=== PATIENT | female | born 1965 | race Caucasian/White ===

== ENCOUNTER 2022-09-14 06:33 | Observation (INO) ==
--- NOTE | 2022-08-18 09:43 | PAT Medication Instructions ---
Medication Instructions Date of Service August 18, 2022 Home Medications albuterol sulfate 90 mcg/actuation aerosol inhaler (ProAir HFA) 1 inh inhalation QID PRN sob cholecalciferol (vitamin D3) 50 mcg (2,000 unit) capsule (Vitamin D3) 50 mcg PO QAM famotidine 20 mg tablet 20 mg PO BID lisinopril 20 mg tablet 20 mg PO QAM metoprolol tartrate 50 mg tablet 50 mg PO BID rivaroxaban 20 mg tablet (Xarelto) 20 mg PO PM ASK your prescriber and surgeon rivaroxaban 20 mg tablet (Xarelto) 20 mg PO PM (in order to get spinal anesthesia DOS- must be off Xarelto/rivaroxaban for at least 72 hours) DO NOT take the morning of surgery cholecalciferol (vitamin D3) 50 mcg (2,000 unit) capsule (Vitamin D3) 50 mcg PO QAM lisinopril 20 mg tablet 20 mg PO QAM Take morning of surgery With a small sip of water, OTHERWISE NOTHING TO EAT OR DRINK AFTER MIDNIGHT: albuterol sulfate 90 mcg/actuation aerosol inhaler (ProAir HFA) 1 inh inhalation QID PRN sob (use if needed; please bring with you to hospital day of surgery if possible) famotidine 20 mg tablet 20 mg PO BID metoprolol tartrate 50 mg tablet 50 mg PO BID Take evening before surgery albuterol sulfate 90 mcg/actuation aerosol inhaler (ProAir HFA) 1 inh inhalation QID PRN sob (if needed) famotidine 20 mg tablet 20 mg PO BID metoprolol tartrate 50 mg tablet 50 mg PO BID Other Notes If you have any questions please call us at [phone] or [phone] or [phone] or [phone]
--- NOTE | 2022-08-19 14:22 | Anesthesiology Consultation ---
Date of Service August 19, 2022 Assessment & Plan (1) Encounter for pre-operative examination: - COVID screening: Per assessment on 08/19: No known COVID-19 positive contacts or current COVID-19 related symptoms. Travel screen negative. Patient vaccinated. At surgeon discretion if preop Covid testing being done. - Outpatient joint assessment: Pt currently scheduled for inpatient pathway. If surgeon requests review for outpatient joint pathway, patient not recommended candidate for outpatient joint program from anesthesia standpoint. Chart Review Chart Review: Acceptable Risk for Surgery and Patient seen in Pre Admission Testing Teaching & Discussion Pre-Anesthesia Teaching/Discussion Notes: Instructed NPO after midnight before surgery,except medications with 15 cc of water. Medication instructions provided according to the PAT guidelines. History Surgery Operation Date: 09/14/22 07:00 Proposed Procedures p Left Total Knee Arthroplasty - Gaudencio Sanchez DO Height/Weight Height: 5 ft 1 in Weight: 97.5 kg Allergies Allergy/AdvReac Type Severity Reaction Status Date / Time Sulfa (Sulfonamide Allergy Rash Verified 08/19/22 12:57 Antibiotics) Medications Home Medications Medication Instructions Recorded Confirmed Last Taken albuterol sulfate 90 mcg/actuation 1 inh inhalation QID PRN sob 08/17/22 08/19/22 Unknown aerosol inhaler (ProAir HFA) cholecalciferol (vitamin D3) 50 50 mcg PO QAM 08/17/22 08/19/22 Unknown mcg (2,000 unit) capsule (Vitamin D3) famotidine 20 mg tablet 20 mg PO BID 08/17/22 08/19/22 Unknown lisinopril 20 mg tablet 20 mg PO QAM 08/17/22 08/19/22 Unknown metoprolol tartrate 50 mg tablet 50 mg PO BID 08/17/22 08/19/22 Unknown rivaroxaban 20 mg tablet (Xarelto) 20 mg PO PM 08/17/22 08/19/22 Unknown Past Medical History Medical History Atrial fibrillation on Xarelto. Folliwing with Dr. Obrien in [place]. GERD (gastroesophageal reflux disease) History of postoperative nausea HTN (hypertension) Osteoarthritis Exercise / Class Metabolic Activity II 4-5 Yardwork/Stairs/Walk up hill Past Family History Family History Other No family history of adverse response to anesthesia Past Surgical History Surgical History History of appendectomy History of arthroscopy of left knee History of arthroscopy of right knee History of cardiac radiofrequency ablation x 2 History of cataract surgery History of colonoscopy History of dental surgery Past Anesthesia History No Hx of Anesthesia Complications (except single remote episode post-op nausea) and No Family Hx of Anesthesia Complications History of PONV No Hx of PONV (except single remote episode post-op nausea) and No Hx of Motion Sickness Social History Smoking Status: Never smoker Do You Dip or Chew Tobacco: No Smoking End Date: Quit 1999 Hx Alcohol Use: Yes alcohol intake frequency: holidays/special occasions only Hx Substance Use: No substance use type: does not use Physical Exam Vital Signs VITALS BP 155/87 P 69 TEMP 98.3 SP02 97%RA RESP 16 PHYSICAL Full cervical extension range of motion. Full TMJ range of motion. TMD 3 finger breaths Mallampati Score 2 Dentition: upper full dentures, partial lower Lungs: clear throughout to auscultation Cardiac: regular rate and rhythm, no murmurs noted Spine: normal Carotid arteries: negative bruit Extremities: no edema Lab Results Anesthesia Preop Results Results Anesthesia Widget: WBC 5.89 K/ul (4.8-10.8) 08/19/22 Hgb 13.5 g/dl (12.0-16.0) 08/19/22 Hct 40.2 % (37.0-47.0) 08/19/22 Plt 178 K/uL (130-400) 08/19/22 Na 140 mmol/L (136-145) 08/19/22 K 4.7 mmol/L (3.5-5.1) 08/19/22 Cl 105 mmol/L (98-107) 08/19/22 CO2 30 mmol/L (21-32) 08/19/22 BUN 20 mg/dl (6-23) 08/19/22 Creat 0.70 mg/dl (0.6-1.2) 08/19/22 Glucose Level 86 mg/dl (70-99(Fasting)) 08/19/22 PT 11.3 Seconds (9.0-12.0) 08/19/22 PTT 38.4 Seconds (21.0-31.0) H 08/19/22 INR 1.1 (0.9-1.1) 08/19/22 Blood Type O Positive 08/19/22 Antibody Screen NEGATIVE 08/19/22 Testing Electrocardiogram Date: 06/15/22 "Normal sinus rhythm at 60bpm, low voltage, nonspecific ST-T wave abnormalities" per cardiology office visit note Chest X-Ray Date: 08/19/22 Findings: + NAD Echocardiogram Date: 11/04/20 EF 55 to 60%. No regional motion abnormality. Mild concentric LVH. Mild TR. COVID-19 Risk Screen Screening Information COVID-19 Screen Date: 08/19/22 Exposure 21 Days Family/Household +COVID Last 21 Days: No Exposure 10 Days Any COVID Exposure Last 10 Days: No Symptoms Last 10 Days Experienced COVID Sx Last 10 Days: No + COVID 0-90 Days COVID + in Last 0-90 Days: No
[~2022-09-14 06:33] MED LIST: ACETAMINOPHEN 500 MG TAB PO SCH; BUPIVACAINE 0.5 % 5 MG/1 ML PF 10ML VIAL ONE; FAMOTIDINE 20 MG TAB PO SCH; GABAPENTIN 900 MG DOSE PO SCH; LR 500ML BOLUS, THEN 15ML/HR IV SCH; LR 60ML/HR IV SCH; ORTHO JOINT MIX INFIL SCH; ROPIVACAINE 0.5% 5 MG/ML 30 ML VIAL ONE; TRANEXAMIC ACID 1,000 MG **IV Intra-op IV SCH; TRANEXAMIC ACID 1,000 MG **IV Pre-op IV SCH; ceFAZolin 2000MG 2,000 MG/15 ML SYR IV SCH; dexAMETHasone 4 MG TAB PO SCH
[2022-09-14] MEDS ORDERED: fentaNYL citrate PF 100 MCG/2 ML VIAL IV PRN (08:16)
[2022-09-14] MEDS ORDERED: ePHEDrine sulfate 50 MG/ML AMP IV PRN (08:16)
[2022-09-14] MEDS ORDERED: ATROPINE SULFATE 0.1 MG/ML 10ML SYR IV PRN (08:16)
[2022-09-14] MEDS ORDERED: ONDANSETRON INJ 2 MG/ML 2 ML VIAL IV PRN ×2 (08:16→12:14)
--- NOTE | 2022-09-14 08:24 | History & Physical Bridge Note ---
Date of Service September 14, 2022 History & Physical Bridge Note I have examined the patient, reviewed the History & Physical and in the interval since the performance of the History & Physical I have noted the following changes of clinical significance: no changes noted
[2022-09-14] MEDS ORDERED: ORTHO JOINT ANESTHETIC ONE (08:48)
[2022-09-14] MEDS ORDERED: MIDAZOLAM HCL 1 MG/ML 2ML VIAL ONE (08:48)
[2022-09-14] MEDS ORDERED: PROPOFOL IV EMULSION 10 MG/ML 20 ML VIAL IV ONE (08:48)
[2022-09-14] MEDS ORDERED: fentaNYL citrate PF 100 MCG/2 ML VIAL ONE (09:21)
[2022-09-14] MEDS ORDERED: ONDANSETRON INJ 2 MG/ML 2 ML VIAL ONE (09:40)
[2022-09-14] MEDS ORDERED: ePHEDrine sulfate 50 MG/ML AMP ONE (10:44)
--- NOTE | 2022-09-14 10:59 | Operative Report ---
PG Post Operative Report Pre & Post Diagnosis Operation Date: 09/14/22 09:20 Pre-Op Diagnosis: Degenerative Joint Disease Left Knee Post-Op Diagnosis: Degenerative Joint Disease Left Knee I identified the patient and participated in the time-out.: Yes Procedure Operation Date: 09/14/22 09:20 Actual Procedures p Left Total Knee Arthroplasty(Left) - Gaudencio Sanchez DO Surgeon Gaudencio Sanchez DO Photo Manager Gaudencio Gan PA-C Estimated Blood Loss 50 Findings Consistent with Post-Op Diagnosis Specimens Left femoral tibial bone Description of Procedure Implants used: I used a Rach Persona total knee arthroplasty system with a size 7 standard femur, E tibia, 28 oval patella, and a size 16 medial congruent polyethylene bearing. All components were cemented in place with Biomet cement. Laverne arrived [facility] for the above procedure. She was seen in the preoperative holding area and the operative extremity was identified and signed. She was given a preoperative antibiotic, TXA, a spinal anesthetic and an adductor nerve block. She was taken back to the operating room and laid on the table in supine position. She was given basic sedation. The operative knee was then prepped and draped in sterile fashion. A timeout was done, and the patient and the operative extremity was properly identified. A midline incision was made directly over the patella. Dissection was taken down to the extensor mechanism. A midvastus arthrotomy was used. The medial retinaculum was released and the fat pad was mostly excised. The knee was flexed and the ACL, PCL, and meniscus were removed. A drill was sent down the center of the femoral canal followed by an intramedullary kevin. Off that kevin a distal femoral cutting block was placed. 9 mm was resected off the distal femur at 5 of valgus. A posterior referencing AP sizing guide was then placed on the distal femur. The femur measured to be a size 7. 2 drill holes were placed in 3 of external rotation. A 4-in-1 cutting block was then impacted into place. Anterior, posterior, and chamfer cuts were then made. The proximal tibia was then exposed. An external tibial alignment guide was placed. A tibial cut guide was then anchored in place and the proximal tibia was then resected. The posterior aspect of the knee was then opened up and any additional meniscus fragments and osteophytes were removed. The tibia measured to be a size E. The tibial plate was then placed in the appropriate rotation and the tibia was drilled and punched. Trial components were then placed. I used a size 16 medial congruent polyethylene insert. The knee was brought through a full range of motion and felt to be stable. The peg holes for the femoral component were then drilled. The patella was then everted and 9 mm was resected off the posterior aspect of the patella. The patella measured to be a size 28 oval. 3 peg holes were then drilled. A trial patella was placed. The knee was once again brought through a full range of motion and felt to be stable. Trial components were then removed. The surrounding soft tissues were injected with 100 cc of an orthopedic pain control cocktail. All components were then cemented into place with Biomet cement. The final polyethylene insert was then snapped into place. Once cement was dry the tourniquet was deflated. Hemostasis was obtained. A dilute betadyne lavage was then done for 3 minutes. The joint was then irrigated with normal saline solution. The midvastus arthrotomy was then closed with #1 Vicryl suture. The skin was closed with 2-0 Vicryl, 3-0V lock suture, and mouna. A soft compressive dressing was placed. She was then transferred to a hospital bed and taken to the postanesthesia care unit in stable condition. She tolerated the procedure well. Gaudencio Gan PA-C, was present for the entire procedure. He was critical for patient positioning, prepping, draping, retraction exposure, wound closure and application of sterile dressing. I attest to the content of the Intraoperative Record and any orders documented therein. Any exceptions are noted below.
--- NOTE | 2022-09-14 11:48 | XRay Report ---
TWO VIEWS LEFT KNEE CLINICAL HISTORY: Postoperative examination. FINDINGS: AP and crosstable lateral portable views of the left knee are obtained. A left knee arthrop lasty is in near anatomic alignment. There has been undersurface remodeling of the patella. No acute fracture is seen. There are expected postoperative changes around the knee including skin clips, soft tissue edema, and subcutaneous gas. IMPRESSION: Expected postoperative changes status post left knee arthroplasty. No acute fracture is s een. ACT 112: Negative or not required by law. Electronically signed by: Kevon Rueda M.D. 09/14/2022 11:46 AM
--- NOTE | 2022-09-14 12:05 | Anesthesiology Progress Note ---
Date of Service September 14, 2022 Anesthesia Post Procedure Vital Signs Vital Signs: Temp Pulse Pulse Resp BP Pulse Ox O2 Del Method 09/14/22 11:50 97.3 F L 69 15 109/69 99 Nasal Cannula 09/14/22 11:40 98.1 F 70 13 132/74 98 Nasal Cannula 09/14/22 11:30 98.1 F 80 16 124/71 96 Oxymask 09/14/22 11:20 98.1 F 79 12 138/81 97 Oxymask 09/14/22 07:16 97.9 F 67 18 162/93 H 98 Room Air O2 Flow Rate 09/14/22 11:50 2 09/14/22 11:40 3 09/14/22 11:30 6 09/14/22 11:20 6 09/14/22 07:16 Pain Intensity Left Knee: Pain Intensity: 4 Transfer of Care Handoff Completed per policy Notes Mental Status: alert / awake / arousable and participated in evaluation Patient Amnestic to Procedure: Yes Nausea / Vomiting: adequately controlled Pain: adequately controlled Airway Patency, RR, SpO2: stable & adequate BP & HR: stable & adequate Hydration State: stable & adequate Neuraxial Anesthesia: was administered and sensory block is resolving Anesthetic Complications: no major complications apparent and Pt Satisfied with anesthetic care
[2022-09-14] MEDS ORDERED: ALBUTEROL HFA 8 GM INHALER INH PRN (12:14)
[2022-09-14] MEDS ORDERED: MAGNESIUM HYDROXIDE SUSP 30 ML UDC PO PRN (12:14)
[2022-09-14] MEDS ORDERED: HYDROmorphone INJ 0.5 MG/0.5 ML SYR IV PRN (12:14)
[2022-09-14] MEDS ORDERED: NALOXONE HCL 0.4 MG/1 ML VIAL/CARP IV PRN (12:14)
[2022-09-14] MEDS ORDERED: bisacodyL 10 MG SUPP PR PRN (12:14)
[2022-09-14] MEDS ORDERED: METOCLOPRAMIDE HCL INJ 5 MG/ML 2 ML VIAL IV PRN (12:14)
[2022-09-14] MEDS: KETOROLAC 30 MG/ML VIAL IV SCH ×2 (12:47→18:02)
[2022-09-14] MEDS: SODIUM CHLORIDE 0.9% 1000ML 1,000 ML IV SCH ×2 (12:47→23:02)
[2022-09-14] MEDS: ACETAMINOPHEN 500 MG TAB PO SCH ×2 (14:19→22:59)
[2022-09-14] MEDS: ceFAZolin 2000MG 2,000 MG/15 ML SYR IV SCH (18:02)
[2022-09-14] MEDS: FAMOTIDINE 20 MG TAB PO SCH (20:30)
[2022-09-14] MEDS: DOCUSATE SODIUM 100 MG CAP PO SCH (20:33)
[2022-09-14] MEDS: METOPROLOL TARTRATE 50 MG TAB PO SCH (20:33)
[2022-09-14] MEDS: oxyCODONE HCL IR 5 MG TAB (IMMEDIATE RELEASE) PO PRN (20:42)
[2022-09-14] MEDS ORDERED: SENNA 8.6 MG TAB PO SCH (21:00)
[2022-09-15] MEDS: KETOROLAC 30 MG/ML VIAL IV SCH ×3 (01:12→12:26)
[2022-09-15] MEDS: ceFAZolin 2000MG 2,000 MG/15 ML SYR IV SCH (01:12)
[2022-09-15] MEDS: ACETAMINOPHEN 500 MG TAB PO SCH (06:06)
--- NOTE | 2022-09-15 06:48 | Orthopedic Progress Note ---
Date of Service September 15, 2022 Assessment & Plan (1) Status post left knee replacement: Overall she is doing very well. She is not having much pain in the left knee. She will be seen by physical therapy today for ambulation and range of motion exercises. She will be on Xarelto 10 mg daily for 2 weeks for DVT prophylaxis. She can then resume her Xarelto 20 mg dosing. The nursing staff can change her dressing after physical therapy today. She can be discharged home later today. She will follow-up orthopedics in 2 weeks. Tia Galloway was seen and examined at bedside this morning. Overall she is doing fairly well. She is not having too much pain in the left knee. She has been up and ambulating to the bathroom. She has no complaints.. Review of Systems All systems reviewed & are unremarkable except as noted in HPI & below. Physical Exam On physical examination of the left knee, the dressing is clean and dry. Her leg is out in full extension. She has active dorsiflexion plantarflexion of her left ankle.. Results & Data Results & Data Laboratory Results . Diagnostic Findings Postoperative x-rays of the left knee show the prosthesis to be in anatomic alignment without any evidence of fracture, screws, or loosening. PG Care Time/CCT Total # of Minutes Spent Total Time Spent with Patient: Total time spent is greater than 50% in coordination of care (as documented) at patient's floor/unit and/or counseling patient: Coding Level of Care Code 64367 Post Operative Follow-Up Diagnoses Status post left knee replacement Z96.652
--- NOTE | 2022-09-15 06:49 | Discharge Summary ---
Date of Service September 15, 2022 Principal Diagnosis Same as "Discharge Diagnosis" noted below under Discharge Instructions. Discharge Exam On physical examination of the left knee, the dressing is clean and dry. Her leg is out in full extension. She has active dorsiflexion plantarflexion of her left ankle.. Discharge Data Procedures Performed Operation Date: 09/14/22 09:20 Actual Procedures p Left Total Knee Arthroplasty(Left) - Gaudencio Sanchez DO Ordered Studies 09/14/22 05:00 US - OR guided needle placemen Routine Hospital Course (1) Status post left knee replacement: On September 14, 2022 Laverne arrived at [facility] and underwent a left knee replacement without complication. She had a spinal anesthetic. Postoperatively she was started on Xarelto for DVT prophylaxis and transferred to the general orthopedic floors. Her hospital course was uneventful. On postop day #1, her vital signs were stable and her pain was well controlled. She was able to participate well with physical therapy doing ambulation and range of motion exercises. She was then discharged home. She will follow-up with orthopedics in 2 weeks. PG Care Time/CCT Total # of Minutes Spent Total Time Spent with Patient: Total time spent is greater than 50% in coordination of care (as documented) at patient's floor/unit and/or counseling patient: Discharge Plan Discharge Items Patient Disposition: Home - Home Health Services Reason For Visit: DJD Knee Left Discharge Diagnosis: Left knee replacement Activity: Per Instructions section Non-emergency contact: Surgeon Call non-emergency contact if: your wound has increased redness and your wound has increased drainage Follow-up/Referrals: Ting Dave DO [Primary Care Provider] - Diet: Regular Addtl Attending Provider Instructions: Activity and Therapy Recommendations: * If you are using [facility] then therapy will be provided at your home until they feel you have accomplished all of your goals. * If you are using [facility] then Physical Therapy will be provided until they feel you are ready to start Outpatient Physical Therapy. * If you are not using home therapy then Outpatient Physical Therapy should start about 3-5 days from your day of surgery. Therapy will last about 6-10 weeks * It is important not to put a pillow under your knee when you are relaxing or sleeping. It is just as important to make sure you are getting your knee perfectly straight as it is to regain your knee bend. * You were shown a series of exercises in the hospital. Do these exercises three times each day including the exercises you were shown in physical therapy. * Get up and walk several times each day. For the first four weeks, try not to stand or walk for more than one hour at a time. If you do stand or walk for more than one hour, you will not hurt anything, but your leg will likely swell. * As you feel comfortable, you may change from the walker or crutches to a cane and then to independent walking. Medications: * Narcotic You will likely be sent home from the hospital with a prescription for the narcotic pain medication that worked best throughout your stay. * Takes Xarelto 10 mg daily for 2 weeks. Then may resume your 20 mg daily doses. * Other medications may be prescribed for specific circumstances. If you have any questions, please call the office at . * Resume previous home medications unless otherwise instructed TEDs/Elastic Stockings: The white elastic stockings help limit swelling and prevent blood clots from forming in your legs.~ The more you wear them, the more they work. Wear them for six weeks. Dressing Care: The dressing can be changed after physical therapy on postop day #1. Daily dry dressing changes for a few days, especially if the incision is still draining some. If the incision is not draining then you may leave the mouna open to air. If there is a little bit of drainage or if the mouna are getting stuck on your clothing then cover the incision with a dry dressing. The mouna will be removed at your 2 week follow-up appointment. Showering: You may shower 5 days from the day of surgery as long as the incision is no longer draining. You may shower with the mouna exposed. Let soapy water run over the mouna and pat them dry. Do not scrub or soak the incision. Things To Watch For: * Drainage from the incision site that occurs more than one week after your surgery. * Increased redness at the incision site. * Fever above 102 degrees Fahrenheit. * Unusual chest pain or shortness of breath. * Call [facility] at with any of the above problems Follow-Up Visit: Follow-up with Dr. Sanchez's PA (Gaudencio Gan) 2-3 weeks after your day of surgery. He will remove your mouna and answer any questions. If you have any additional questions or concerns, Dr Sanchez is usually in the office at the same time and will be available An appointment was probably scheduled when you signed-up for surgery in the office. If you have any questions call Office Instructions: More detailed instructions as well as Frequently Asked Questions were provided in a folder by our office when you signed-up for surgery. Please review these instructions when you get home. If you have any further questions or concerns, please feel free to call the office at [phone] Pending Studies at Discharge: No Stand-Alone Forms: My [facility] [employer], Smoking Cessation Medications and DC Order Prescriptions: New oxycodone-acetaminophen 5-325 mg tablet 1 tab PO Q6H PRN (Reason: pain) Qty: 30 0RF Xarelto 10 mg tablet 10 mg PO DAILY Qty: 14 0RF Rx Instructions: for 35 days Continued lisinopril 20 mg Tablet 20 mg PO QAM famotidine 20 mg Tablet 20 mg PO BID metoprolol tartrate 50 mg Tablet 50 mg PO BID albuterol sulfate [ProAir HFA] 90 mcg/actuation Hfa Aerosol Inhaler 1 inh INHALATION QID PRN (Reason: sob) cholecalciferol (vitamin D3) [Vitamin D3] 50 mcg (2,000 unit) Capsule 50 mcg PO QAM Discontinued Xarelto 20 mg Tablet 20 mg PO PM Rx Instructions: must administer with evening meal Admission Data Admit Date/Time: 09/14/22 11:24 Attending Provider: Gaudencio Sanchez Admit Provider: Gaudencio Sanchez Primary Care Provider: Ting Dave
[2022-09-15] MEDS: oxyCODONE HCL IR 5 MG TAB (IMMEDIATE RELEASE) PO PRN (07:49)
[2022-09-15] MEDS: FAMOTIDINE 20 MG TAB PO SCH (07:51)
[2022-09-15] MEDS: DOCUSATE SODIUM 100 MG CAP PO SCH (07:51)
[2022-09-15] MEDS: METOPROLOL TARTRATE 50 MG TAB PO SCH (07:51)
[2022-09-15] MEDS ORDERED: dexAMETHasone 4 MG TAB PO SCH (08:00)
[2022-09-15] MEDS ORDERED: lisinopril 20 MG TAB PO SCH (09:00)
[2022-09-15] MEDS ORDERED: MULTIVITAMIN TAB PO SCH (09:00)
[2022-09-15] MEDS ORDERED: RIVAROXABAN 10 MG TABLET PO SCH (21:00)
[2022-09-15] MEDS ORDERED: RIVAROXABAN 20 MG TAB PO SCH (21:00)
== END 2022-09-15 14:59 | disposition home health service (06) ==
LOC: ASU 06:33 → 3E 06:33
DX: Z88.2 Allergy status to sulfonamides; Z79.899 Other long term (current) drug therapy; Z79.01 Long term (current) use of anticoagulants; M17.12 Unilateral primary osteoarthritis, left knee

== ENCOUNTER 2023-09-10 06:29 | Observation (INO) ==
--- NOTE | 2023-08-12 09:40 | PAT Medication Instructions ---
Medication Instructions Date of Service August 12, 2023 Home Medications albuterol sulfate 90 mcg/actuation aerosol inhaler (ProAir HFA) 1 inh inhalation QID PRN famotidine 20 mg tablet 20 mg PO BID lisinopril 20 mg tablet 20 mg PO QAM metoprolol tartrate 50 mg tablet 50 mg PO BID rivaroxaban 10 mg tablet (Xarelto) 10 mg PO QPM ASK your prescriber and surgeon rivaroxaban 10 mg tablet (Xarelto) 10 mg PO QPM(in order for spinal or epidural anesthesia, Xarelto needs to be stopped 72 hours/3 days before surgery. Please check if okay with doctor that prescribes this to you) DO NOT take the morning of surgery lisinopril 20 mg tablet 20 mg PO QAM Take morning of surgery With a small sip of water, OTHERWISE NOTHING TO EAT OR DRINK AFTER MIDNIGHT: albuterol sulfate 90 mcg/actuation aerosol inhaler (ProAir HFA) 1 inh inhalation QID PRN(use if needed; please bring with you to hospital day of surgery if possible) famotidine 20 mg tablet 20 mg PO BID metoprolol tartrate 50 mg tablet 50 mg PO BID Take evening before surgery albuterol sulfate 90 mcg/actuation aerosol inhaler (ProAir HFA) 1 inh inhalation QID PRN(if needed) famotidine 20 mg tablet 20 mg PO BID metoprolol tartrate 50 mg tablet 50 mg PO BID Other Notes If you have any questions please call us at [phone] or [phone] or [phone] or [phone]
--- NOTE | 2023-08-17 13:31 | Anesthesiology Consultation ---
Date of Service August 17, 2023 Assessment & Plan (1) Encounter for pre-operative examination: - difficult IV stick. OR notified. - cardiology office visit 07/12/23: "...paroxysmal atrial fibrillation and flutter s/p cryoablation via PVI and RF ablation via CTI on 09/23/2016, status post redo RF Ablation on 04/28/2019, hypertension...continues to endorse no new or worsening cardiac symptoms...has maintained sinus rhythm with no subjective or objective relapse. Event monitor in February 2022 showed short paroxysms of atrial tachycardia. No atrial fibrillation or flutter noted...on rivaroxaban 20 mg daily for thromboembolic prevention...scheduled for right knee replacement in September 2023...will see her back in 6 months..." - Outpatient joint assessment: Patient is currently scheduled for inpatient pathway. If re-evaluated and patient/surgeon requests outpatient pathway, patient is not recommended candidate for outpatient joint program from anesthesia standpoint. Chart Review Chart Review: Acceptable Risk for Surgery and Patient seen in Pre Admission Testing Teaching & Discussion Pre-Anesthesia Teaching/Discussion Notes: Instructed NPO after midnight before surgery, except medications with 15 cc of water. Medication instructions provided according to the PAT guidelines. History Surgery Operation Date: 09/10/23 09:00 Proposed Procedures p Right Total Knee Arthroplasty - Gaudencio Sanchez DO Height/Weight Height: 5 ft 1 in Weight: 116.9 kg Allergies Allergy/AdvReac Type Severity Reaction Status Date / Time Sulfa (Sulfonamide Allergy Mild Rash Verified 08/11/23 11:37 Antibiotics) Medications Home Medications Medication Instructions Recorded Confirmed Last Taken albuterol sulfate 90 mcg/actuation 1 inh inhalation QID PRN sob 08/17/22 08/11/23 09/13/22 16:00 aerosol inhaler (ProAir HFA) famotidine 20 mg tablet 20 mg PO BID 08/17/22 08/11/23 09/14/22 05:30 lisinopril 20 mg tablet 20 mg PO QAM 08/17/22 08/11/23 09/13/22 06:30 metoprolol tartrate 50 mg tablet 50 mg PO BID 08/17/22 08/11/23 09/14/22 05:30 rivaroxaban 10 mg tablet (Xarelto) 10 mg PO QPM 08/11/23 08/11/23 Unknown Past Medical History Medical History Difficult intravenous access History of postoperative nausea GERD (gastroesophageal reflux disease) HTN (hypertension) Atrial fibrillation Patient denies h/o stroke, seizures, heart attack, heart failure, DM, blood clots/DVTs or blood transfusions. Exercise / Class Metabolic Activity III < 4 Walking/Shop/Light housework (denies chest discomfort or shortness of breath with usual activities, less than 8 steps at home) Past Family History Family History Other No family history of adverse response to anesthesia Past Surgical History Surgical History History of left knee replacement History of arthroscopy of right knee History of arthroscopy of left knee History of appendectomy History of dental surgery History of cataract surgery History of colonoscopy History of cardiac radiofrequency ablation Past Anesthesia History No Hx of Anesthesia Complications and No Family Hx of Anesthesia Complications History of PONV No Hx of Motion Sickness and History of PONV (denies needing scop patch) Social History Smoking Status: Former smoker Do You Dip or Chew Tobacco: No Smoking End Date: quit 1999 Hx Alcohol Use: Yes alcohol intake frequency: holidays/special occasions only Hx Substance Use: No substance use type: does not use Review of Systems Snoring, denies witnessed apneas. Patient reports sleep study was negative. Patient denies chest pain, shortness of breath, dyspnea on exertion, fever, chills, cough, wheezing, or palpitations. Physical Exam Vital Signs Vitals BP 140/84 P 74 TEMP 98.3 SP02 97% on RA RESP 18 Physical Patient resting comfortably in chair in no acute distress, alert and oriented, responding appropriately throughout visit Full cervical extension range of motion without pain TMD < 3 finger breadths Mallampati Score 2 Dentition: full upper plate and lower partial, denies chipped or loose teeth, caps/crowns, implants or bridges Lungs: normal respiratory effort. Good air movement, clear throughout to auscultation, no adventitious breath sounds Cardiac: regular rate and rhythm, no murmurs noted Carotid arteries: negative bruit bilat Lab Results Anesthesia Preop Results Results Anesthesia Widget: WBC 6.08 K/ul (4.8-10.8) 08/17/23 Hgb 13.7 g/dl (12.0-16.0) 08/17/23 Hct 41.7 % (37.0-47.0) 08/17/23 Plt 194 K/uL (130-400) 08/17/23 Na 140 mmol/L (136-145) 08/17/23 K 4.7 mmol/L (3.5-5.1) 08/17/23 Cl 104 mmol/L (98-107) 08/17/23 CO2 29 mmol/L (21-32) 08/17/23 BUN 12 mg/dl (6-23) 08/17/23 Creat 0.68 mg/dl (0.6-1.2) 08/17/23 Glucose Level 85 mg/dl (70-99(Fasting)) 08/17/23 PT 11.9 Seconds (9.0-12.0) 08/17/23 PTT 39 Seconds (21-31) H 08/17/23 INR 1.1 (0.9-1.1) 08/17/23 Blood Type O Positive 08/17/23 Antibody Screen NEGATIVE 08/17/23 Testing Electrocardiogram Date: 07/12/23 Unable to read report on scanned copy, cardiology note from same date documents: NSR at 71 bpm, low voltage, nonspecific ST-T wave abnormalities Chest X-Ray Date: 08/17/23 No significant change compared to the prior study. No acute process. Stable cardiomegaly. Echocardiogram Date: 12/31/22 EF 55-60% Normal LV wall motion Mildly dilated RV, RVSP 32 mmHg Mildly dilated atria Mild mitral regurgitation Mild tricuspid regurgitation
[~2023-09-10 06:29] MED LIST changes: -ACETAMINOPHEN 500 MG TAB PO SCH; +DEXAMETHASONE SOD INJ 4 MG/ML VIAL ONE; -FAMOTIDINE 20 MG TAB PO SCH; -GABAPENTIN 900 MG DOSE PO SCH; -LR 500ML BOLUS, THEN 15ML/HR IV SCH; -LR 60ML/HR IV SCH; -ORTHO JOINT MIX INFIL SCH; -TRANEXAMIC ACID 1,000 MG **IV Intra-op IV SCH; -TRANEXAMIC ACID 1,000 MG **IV Pre-op IV SCH; -ceFAZolin 2000MG 2,000 MG/15 ML SYR IV SCH; -dexAMETHasone 4 MG TAB PO SCH
--- NOTE | 2023-09-10 06:30 | History & Physical Bridge Note ---
Date of Service September 10, 2023 History & Physical Bridge Note I have examined the patient, reviewed the History & Physical and in the interval since the performance of the History & Physical I have noted the following changes of clinical significance: no changes noted
[2023-09-10] MEDS ORDERED: MIDAZOLAM HCL 1 MG/ML 2ML VIAL ONE (07:03)
[2023-09-10] MEDS ORDERED: PROPOFOL IV EMULSION 10 MG/ML 20 ML VIAL IV ONE ×2 (07:06→15:23)
[2023-09-10] MEDS ORDERED: fentaNYL citrate PF 100 MCG/2 ML VIAL ONE (07:15)
[2023-09-10] MEDS ORDERED: LIDOCAINE 2% 2 ML VIAL/AMP(20MG/ML) INFIL ONE (07:15)
[2023-09-10] MEDS ORDERED: ePHEDrine sulfate 50 MG/ML AMP IV PRN ×2 (07:18→07:27)
[2023-09-10] MEDS ORDERED: PROMETHAZINE HCL 6.25 MG in SODIUM CHLORIDE 0.9% 50 ML IV PRN ×2 (07:18→07:27)
[2023-09-10] MEDS ORDERED: ATROPINE SULFATE 0.1 MG/ML 10ML SYR IV PRN ×2 (07:18→07:27)
[2023-09-10] MEDS ORDERED: HYDROmorphone INJ 2 MG/ML SYR/VIAL IV PRN ×2 (07:18→07:27)
--- NOTE | 2023-09-10 07:19 | Anesthesiology Consultation ---
Date of Service September 10, 2023 Assessment & Plan Consults Requested medical & cardiac Pulmonary History Surgery Operation Date: 09/10/23 08:00 Proposed Procedures p Right Total Knee Arthroplasty - Gaudencio Sanchez DO Height/Weight Height: 5 ft 1 in Weight: 117.3 kg Allergies Allergy/AdvReac Type Severity Reaction Status Date / Time Sulfa (Sulfonamide Allergy Mild Rash Verified 09/10/23 06:51 Antibiotics) Medications Home Medications Medication Instructions Recorded Confirmed Last Taken albuterol sulfate 90 mcg/actuation 1 inh inhalation QID PRN sob 08/17/22 09/10/23 09/13/22 16:00 aerosol inhaler (ProAir HFA) famotidine 20 mg tablet 20 mg PO BID 08/17/22 09/10/23 09/09/23 18:30 lisinopril 20 mg tablet 20 mg PO QAM 08/17/22 09/10/23 09/09/23 06:00 metoprolol tartrate 50 mg tablet 50 mg PO BID 08/17/22 09/10/23 09/09/23 18:30 rivaroxaban 10 mg tablet (Xarelto) 10 mg PO QPM 08/11/23 09/10/23 09/07/23 18:30 NPO Date Last Intake of Fluids: 09/09/23 Time Last Intake of Fluids: 22:00 Date Last Intake of Solids: 09/09/23 Time Last Intake of Solids: 19:00 Past Medical History Medical History Difficult intravenous access History of postoperative nausea GERD (gastroesophageal reflux disease) HTN (hypertension) Atrial fibrillation Past Family History Family History Other No family history of adverse response to anesthesia Past Surgical History Surgical History History of left knee replacement History of arthroscopy of right knee History of arthroscopy of left knee History of appendectomy History of dental surgery History of cataract surgery History of colonoscopy History of cardiac radiofrequency ablation Social History Smoking Status: Former smoker Do You Dip or Chew Tobacco: No Smoking End Date: 1999 Hx Alcohol Use: Yes alcohol intake frequency: holidays/special occasions only Hx Substance Use: No substance use type: does not use Physical Exam Vital Signs Last Vital Signs Temp 36.6 C 09/10/23 06:48 Pulse 84 09/10/23 06:48 Resp 16 09/10/23 06:48 BP 170/91 H 09/10/23 06:48 Pulse Ox 99 09/10/23 06:48 O2 Del Method Room Air 09/10/23 06:48 Testing Electrocardiogram Date: 07/12/23 Unable to read report on scanned copy, cardiology note from same date documents: NSR at 71 bpm, low voltage, nonspecific ST-T wave abnormalities Chest X-Ray Date: 08/17/23 No significant change compared to the prior study. No acute process. Stable cardiomegaly. Echocardiogram Date: 12/31/22 EF 55-60% Normal LV wall motion Mildly dilated RV, RVSP 32 mmHg Mildly dilated atria Mild mitral regurgitation Mild tricuspid regurgitation
[2023-09-10] MEDS: ACETAMINOPHEN 500 MG TAB PO SCH (07:24)
[2023-09-10] MEDS: FAMOTIDINE 20 MG TAB PO SCH ×2 (07:24→20:22)
[2023-09-10] MEDS: GABAPENTIN 600 MG DOSE PO SCH (07:24)
[2023-09-10] MEDS: dexAMETHasone**PF** 10 MG/ML VIAL IV SCH (07:24)
[2023-09-10] MEDS: SCOPOLAMINE 1 MG TDSY TD STA (07:32)
[2023-09-10] MEDS: TRANEXAMIC ACID 1,000 MG **IV Pre-op IV SCH (07:38)
[2023-09-10] MEDS: LR 500ML BOLUS, THEN 15ML/HR IV SCH (07:48)
[2023-09-10] MEDS: LR 60ML/HR IV SCH (07:48)
[2023-09-10] MEDS: APREPITANT 40 MG CAP PO SCH (08:07)
[2023-09-10] MEDS: ceFAZolin 2000MG 2,000 MG/15 ML SYR IV SCH (08:18)
[2023-09-10] MEDS ORDERED: HYDROmorphone INJ 2 MG/ML SYR/VIAL ONE (08:41)
[2023-09-10] MEDS: ROPIV 0.5% 246mg, Ketorolac 30mg, EPINEPHrine 0.5mg in NSS INFIL SCH (08:46)
[2023-09-10] MEDS ORDERED: ONDANSETRON INJ 2 MG/ML 2 ML VIAL ONE (09:07)
[2023-09-10] MEDS ORDERED: DEXAMETHASONE SOD INJ 4 MG/ML VIAL ONE (09:07)
[2023-09-10] MEDS: TRANEXAMIC ACID 1,000 MG **IV Intra-op IV SCH (09:24)
[2023-09-10] MEDS ORDERED: DROPERIDOL 5 MG/2 ML VIAL IV PRN (09:57)
--- NOTE | 2023-09-10 10:24 | XRay Report ---
TWO VIEWS RIGHT KNEE CLINICAL HISTORY: Postoperative examination. FINDINGS: AP and crosstable lateral portable views of the right knee are obtained. A right knee arthr oplasty is in near anatomic alignment. There has been undersurface remodeling of the patella. No acut e fracture is seen. There are expected postoperative changes around the knee including skin clips, so ft tissue edema, and subcutaneous gas. IMPRESSION: Expected postoperative changes status post right knee arthroplasty. No acute fracture is seen. ACT 112: Negative or not required by law. Electronically signed by: Kevon Rueda M.D. 09/10/2023 10:23 AM
--- NOTE | 2023-09-10 10:38 | Operative Report ---
PG Post Operative Report Pre & Post Diagnosis Operation Date: 09/10/23 08:00 Pre-Op Diagnosis: Degenerative Joint Disease Right Knee Post-Op Diagnosis: Degenerative Joint Disease Right Knee I identified the patient and participated in the time-out.: Yes Procedure Operation Date: 09/10/23 08:00 Actual Procedures p Right Total Knee Arthroplasty(Right) - Gaudencio Sanchez DO Surgeon Gaudencio Sanchez DO Embossing Toolsetter Gaudencio Gan PA-C Estimated Blood Loss 30 Findings Consistent with Post-Op Diagnosis Specimens Right femoral and tibial bone Description of Procedure Implants used: I used a Rach Persona total knee arthroplasty system with a size 6 standard femur, E tibia, 28 oval patella, and a size 13 medial congruent polyethylene bearing. All components were cemented in place with Biomet cement. Laverne arrived [facility] for the above procedure. She was seen in the preoperative holding area and the operative extremity was identified and signed. She was given a preoperative antibiotic, TXA, and an adductor nerve block. She was taken back to the operating room and laid on the table in supine position. She was given general anesthesia. The operative knee was then prepped and draped in sterile fashion. A timeout was done, and the patient and the operative extremity was properly identified. A midline incision was made directly over the patella. Dissection was taken down to the extensor mechanism. A midvastus arthrotomy was used. The medial retinaculum was released and the fat pad was mostly excised. The knee was flexed and the ACL, PCL, and meniscus were removed. A drill was sent down the center of the femoral canal followed by an intramedullary kevin. Off that kevin a distal femoral cutting block was placed. 9 mm was resected off the distal femur at 5 of valgus. A posterior referencing AP sizing guide was then placed on the distal femur. The femur measured to be a size 6. 2 drill holes were placed in 3 of external rotation. A 4-in-1 cutting block was then impacted into place. Anterior, posterior, and chamfer cuts were then made. The proximal tibia was then exposed. An external tibial alignment guide was placed. A tibial cut guide was then anchored in place and the proximal tibia was then resected. The posterior aspect of the knee was then opened up and any additional meniscus fragments and osteophytes were removed. The tibia measured to be a size E. The tibial plate was then placed in the appropriate rotation and the tibia was drilled and punched. Trial components were then placed. I used a size 13 medial congruent polyethylene insert. The knee was brought through a full range of motion and felt to be stable. The peg holes for the femoral component were then drilled. The patella was then everted and 9 mm was resected off the posterior aspect of the patella. The patella measured to be a size 28 oval. 3 peg holes were then drilled. A trial patella was placed. The knee was once again brought through a full range of motion and felt to be stable. Trial components were then removed. The surrounding soft tissues were injected with 100 cc of an orthopedic pain control cocktail. All components were then cemented into place with Biomet cement. The final polyethylene insert was then snapped into place. Once cement was dry the tourniquet was deflated. Hemostasis was obtained. A dilute betadyne lavage was then done for 3 minutes. The joint was then irrigated with normal saline solution. The midvastus arthrotomy was then closed with #1 Vicryl suture. The skin was closed with 2-0 Vicryl, 3-0V lock suture, and mouna. A soft compressive dressing was placed. She was then transferred to a hospital bed and taken to the postanesthesia care unit in stable condition. She tolerated the procedure well. Rajinder Warren PA-C, was present for the entire procedure. He was critical for patient positioning, prepping, draping, retraction exposure, wound closure and application of sterile dressing. I attest to the content of the Intraoperative Record and any orders documented therein. Any exceptions are noted below.
[2023-09-10] MEDS ORDERED: ALBUTEROL HFA 8 GM INHALER INH PRN (11:05)
[2023-09-10] MEDS ORDERED: MAGNESIUM HYDROXIDE SUSP 30 ML UDC PO PRN (11:05)
[2023-09-10] MEDS ORDERED: ONDANSETRON INJ 2 MG/ML 2 ML VIAL IV PRN (11:05)
[2023-09-10] MEDS ORDERED: traMADol HCL 50 MG TABLET PO PRN (11:05)
[2023-09-10] MEDS ORDERED: NALOXONE HCL 0.4 MG/1 ML VIAL/CARP IV PRN (11:05)
[2023-09-10] MEDS ORDERED: HYDROmorphone INJ 0.5 MG/0.5 ML SYR IV PRN (11:05)
[2023-09-10] MEDS ORDERED: bisacodyL 10 MG SUPP PR PRN (11:05)
[2023-09-10] MEDS ORDERED: METOCLOPRAMIDE HCL INJ 5 MG/ML 2 ML VIAL IV PRN (11:05)
[2023-09-10] MEDS ORDERED: ACETAMINOPHEN 1,000 MG/100 ML VIAL IV PRN (11:05)
[2023-09-10] MEDS: SODIUM CHLORIDE 0.9% 1,000 ML IV SCH (11:35)
[2023-09-10] MEDS: KETOROLAC TROMETHAMINE 15 MG/ML VIAL IV SCH (12:11)
--- NOTE | 2023-09-10 13:19 | Anesthesiology Progress Note ---
Date of Service September 10, 2023 Anesthesia Post Procedure Vital Signs Vital Signs: Temp Pulse Pulse Resp BP Pulse Ox O2 Del Method 09/10/23 12:39 72 16 107/67 95 Room Air 09/10/23 11:37 67 16 123/73 93 Room Air 09/10/23 11:08 78 16 124/75 93 Room Air 09/10/23 10:40 36.5 C 81 16 137/77 94 Room Air 09/10/23 10:30 36.4 C L 90 16 137/87 94 Room Air 09/10/23 10:20 85 13 153/83 H 96 Oxymask 09/10/23 10:10 78 18 150/90 H 100 Oxymask 09/10/23 10:01 36.2 C L 93 H 20 160/86 H 97 Oxymask 09/10/23 06:48 36.6 C 84 16 170/91 H 99 Room Air O2 Flow Rate 09/10/23 12:39 09/10/23 11:37 09/10/23 11:08 09/10/23 10:40 09/10/23 10:30 09/10/23 10:20 2 09/10/23 10:10 4 09/10/23 10:01 6 09/10/23 06:48 Pain Intensity Right Knee: Pain Intensity: 5 Transfer of Care Handoff Completed per policy Notes Mental Status: alert / awake / arousable and participated in evaluation Nausea / Vomiting: adequately controlled Pain: adequately controlled Airway Patency, RR, SpO2: stable & adequate BP & HR: stable & adequate Hydration State: stable & adequate Anesthetic Complications: no major complications apparent and Pt Satisfied with anesthetic care
[2023-09-10] MEDS ORDERED: CHECK SCOPOLAMINE PATCH PLACEMENT SCH (16:00)
[2023-09-10] MEDS: ceFAZolin 1000MG 1,000 MG/7.5 ML SYR IV SCH (16:04)
[2023-09-10] MEDS: DOCUSATE SODIUM 100 MG CAP PO SCH (20:23)
[2023-09-10] MEDS: METOPROLOL TARTRATE 50 MG TAB PO SCH (20:23)
[2023-09-10] MEDS: RIVAROXABAN 10 MG TABLET PO SCH (20:23)
[2023-09-10] MEDS: SENNA 8.6 MG TAB PO SCH (20:23)
[2023-09-11] MEDS: dexAMETHasone 4 MG TAB PO SCH (07:19)
[2023-09-11] MEDS: MULTIVITAMIN TAB PO SCH (08:04)
[2023-09-11] MEDS: lisinopril 20 MG TAB PO SCH (08:04)
--- NOTE | 2023-09-11 09:21 | Orthopedic Progress Note ---
Date of Service September 11, 2023 Assessment & Plan (1) Status post right knee replacement: Overall she is doing well and happy with her progress. She is not having much pain in the right knee. She will be seen by physical therapy today for ambulation and range of motion exercises. The nursing staff can change her dressing after physical therapy. She is on Xarelto for DVT prophylaxis. She can be discharged home later today. She will follow-up with orthopedics in 2 weeks. Tia Galloway was seen and examined at bedside this morning. Overall she is doing very well. She is not having much pain in the right knee. She has been up and ambulating to the bathroom. She has no complaints.. Review of Systems All systems reviewed & are unremarkable except as noted in HPI & below. Physical Exam On physical examination of the right knee, the dressing is clean and dry. Her leg is out full extension. She has active dorsiflexion plantarflexion of the right ankle.. Results & Data Results & Data Laboratory Results . Diagnostic Findings Postoperative x-rays of the right knee show the prosthesis to be in anatomic alignment without any evidence of fracture complication, or loosening.. PG Care Time/CCT Total # of Minutes Spent Total Time Spent with Patient: Total time spent is greater than 50% in coordination of care (as documented) at patient's floor/unit and/or counseling patient: Coding Level of Care Code 06092 Post Operative Follow-Up Diagnoses Status post right knee replacement Z96.651
--- NOTE | 2023-09-11 09:22 | Discharge Summary ---
Date of Service September 11, 2023 Principal Diagnosis Same as "Discharge Diagnosis" noted below under Discharge Instructions. Discharge Exam On physical examination of the right knee, the dressing is clean and dry. Her leg is out full extension. She has active dorsiflexion plantarflexion of the right ankle.. Discharge Data Procedures Performed Operation Date: 09/10/23 08:00 Actual Procedures p Right Total Knee Arthroplasty(Right) - Gaudencio Sanchez DO Ordered Studies 09/10/23 05:00 US - OR guided needle placemen Routine Hospital Course (1) Status post right knee replacement: On September Laverne arrived at [facility] and underwent a right knee replacement without complication. She had a general anesthetic. Postoperatively she was started on Xarelto for DVT prophylaxis and transferred to the general orthopedic floors. Her hospital course was uneventful. On postop day #1, her vital signs were stable and her pain was well-controlled. She was able to participate well with physical therapy doing ambulation and range of motion exercises. She was then discharged home. She will follow-up with orthopedics in 2 weeks. PG Care Time/CCT Total # of Minutes Spent Total Time Spent with Patient: Total time spent is greater than 50% in coordination of care (as documented) at patient's floor/unit and/or counseling patient: Discharge Plan Discharge Items Patient Disposition: Home - Self-Care Reason For Visit: Degenerative Joint Disease Right Knee Discharge Diagnosis: Right knee replacement Activity: Per Instructions section Non-emergency contact: Surgeon Call non-emergency contact if: your wound has increased redness and your wound has increased drainage Follow-up/Referrals: Ramon Coates CRNP [Primary Care Provider] - Diet: Regular Addtl Attending Provider Instructions: Activity and Therapy Recommendations: * If you are using [facility] then therapy will be provided at your home until they feel you have accomplished all of your goals. * If you are using [facility] then Physical Therapy will be provided until they feel you are ready to start Outpatient Physical Therapy. * If you are not using home therapy then Outpatient Physical Therapy should start about 3-5 days from your day of surgery. Therapy will last about 6-10 weeks * It is important not to put a pillow under your knee when you are relaxing or sleeping. It is just as important to make sure you are getting your knee perfectly straight as it is to regain your knee bend. * You were shown a series of exercises in the hospital. Do these exercises three times each day including the exercises you were shown in physical therapy. * Get up and walk several times each day. For the first four weeks, try not to stand or walk for more than one hour at a time. If you do stand or walk for more than one hour, you will not hurt anything, but your leg will likely swel l. * As you feel comfortable, you may change from the walker or crutches to a cane and then to independent walking. Medications: * Narcotic You will likely be sent home from the hospital with a prescription for the narcotic pain medication that worked best throughout your stay. * Cefadroxil -take the antibiotic twice a day for 10 days to help with infection. * Xarelto -continue taking your Xarelto 10 mg daily. * Other medications may be prescribed for specific circumstances. If you have any questions, please call the office at . * Resume previous home medications unless otherwise instructed TEDs/Elastic Stockings: The white elastic stockings help limit swelling and prevent blood clots from forming in your legs.~ The more you wear them, the more they work. Wear them for six weeks. Dressing Care: The dressing can be changed after physical therapy on postop day #1. Daily dry dressing changes for a few days, especially if the incision is still draining some. If the incision is not draining then you may leave the mouna open to air. If there is a little bit of drainage or if the mouna are getting stuck on your clothing then cover the incision with a dry dressing. The mouna will be removed at your 2 week follow-up appointment. Showering: You may shower 5 days from the day of surgery as long as the incision is no longer draining. You may shower with the mouna exposed. Let soapy water run over the mouna and pat them dry. Do not scrub or soak the incision. Things To Watch For: * Drainage from the incision site that occurs more than one week after your surgery. * Increased redness at the incision site. * Fever above 102 degrees Fahrenheit. * Unusual chest pain or shortness of breath. * Call [facility] at with any of the above problems Follow-Up Visit: Follow-up with Dr. Sanchez's PA (Gaudencio Gan) 2-3 weeks after your day of surgery. He will remove your mouna and answer any questions. If you have any additional questions or concerns, Dr Sanchez is usually in the office at the same time and will be available An appointment was probably scheduled when you signed-up for surgery in the office. If you have any questions call Office Instructions: More detailed instructions as well as Frequently Asked Questions were provided in a folder by our office when you signed-up for surgery. Please review these instructions when you get home. If you have any further questions or concerns, please feel free to call the office at [phone] Pending Studies at Discharge: No Stand-Alone Forms: [facility], Smoking Cessation Medications and DC Order Prescriptions: New oxycodone 5 mg Tablet 5 mg PO Q4H PRN (Reason: pain) Qty: 30 0RF cefadroxil 500 mg capsule 500 mg PO BID 10 Days Qty: 20 0RF Continued lisinopril 20 mg Tablet 20 mg PO QAM famotidine 20 mg Tablet 20 mg PO BID metoprolol tartrate 50 mg Tablet 50 mg PO BID albuterol sulfate [ProAir HFA] 90 mcg/actuation Hfa Aerosol Inhaler 1 inh INHALATION QID PRN (Reason: sob) Xarelto 10 mg tablet 10 mg PO QPM Rx Instructions: for 35 days Discharge Orders: Discharge Order (Routine); Ordered 09/11/23 Ordered By: Gaudencio Sanchez Admission Data Admit Date/Time: 09/10/23 10:07 Attending Provider: Gaudencio Sanchez Admit Provider: Gaudencio Sanchez Primary Care Provider: Ramon Coates
[2023-09-11] MEDS: oxyCODONE HCL IR 5 MG TAB (IMMEDIATE RELEASE) PO PRN (09:38)
== END 2023-09-11 11:10 | disposition home or self-care (01) ==
LOC: ASU 06:29 → 3E 06:29